=== PATIENT | male | born 1955 | race Caucasian/White ===

== ENCOUNTER 2021-02-01 10:00 | Observation (INO) | payer BC, MEDICARE, OTHER ==
[2021-02-01] MEDS ORDERED: Iopamidol-370 76% 500 ML 1 ML ONE (11:03)
[2021-02-01 11:06] LABS: #Lymphocytes 1.7 thou/uL (1.20-3.40); #Monocytes 0.6 thou/uL (0.11-0.59); #Neutrophils 4.1 thou/uL (1.40-6.50); %Basophils 0.6 % (0.0-1.0); %Eosinophils 0.3 % (0.0-10.0); %Lymphocytes 26.2 % (21.0-51.0); %Neutrophils 63.8 % (42.0-75.0); Hemoglobin 14.5 g/dL (14.0-18.0); Mean Corpuscular HGB CONC 34.1 g/dL (32.0-36.0); Mean Corpuscular Hemoglobin 30.4 pg (27.0-31.0); Mean Corpuscular Volume 89.3 fL (78.0-98.0); Mean Platelet Volume 8.9 fL (7.4-10.4); Platelet Count 145 thou/uL (130-400); RBC Distribution Width 12.3 % (11.5-14.5); Red Blood Cell (RBC) Count 4.77 mill/uL (4.70-6.10); White Blood Cell (WBC) Count 6.5 thou/uL (4.8-10.8)
[2021-02-01] MEDS ORDERED: Aspirin Chewable 81 MG TAB ONE (11:10)
[2021-02-01 11:31] LABS: ALT (SGPT) 26 U/L (8-55); AST (SGOT) 23 U/L (5-34); Albumin 4.1 g/dL (3.4-4.8); Alkaline Phosphatase 134 U/L (40-110); Anion Gap 17 mmol/L (10-20); BUN (Urea Nitrogen) 15 mg/dL (8.4-25.7); Bilirubin, Total 1.5 mg/dL (0.2-1.2); Calc. Creatinine Clearance 0 mL/min (70-130); Calcium 9.6 mg/dL (7.8-10.44); Carbon Dioxide 24 mmol/L (23-31); Chloride 101 mmol/L (98-107); Globulin 2.8 g/dL (2.4-3.5); Glucose 129 mg/dL (80-115); Potassium 4.5 mmol/L (3.5-5.1); Protein, Total 6.9 g/dL (5.8-8.1); Sodium 137 mmol/L (136-145)
[2021-02-01] MEDS ORDERED: Nitroglycerin 0.4 MG TAB (25 Tab Bottle) SL PRN (14:32)
[2021-02-01] MEDS ORDERED: HumaLOG 300 UNITS/3 ML VIAL SC PRN (14:34)
[2021-02-01] MEDS ORDERED: Dextrose 5% in Water 1,000 ML IV PRN (14:34)
[2021-02-01] MEDS ORDERED: Dextrose 50% Abboject 50 ML SYRINGE SLOW IVP PRN (14:34)
[2021-02-01 15:00] LABS: Troponin I Less than 0.010 ng/mL (< 0.028)
[2021-02-01 16:11] VITALS: BMI 30.8
[2021-02-01 17:44] LABS: Troponin I Less than 0.010 ng/mL (< 0.028)
[2021-02-01] MEDS ORDERED: Mometasone 100 MCG/PUFF (1 INHALER) INH PRN (17:53)
[2021-02-01] MEDS: Alogliptin 6.25 MG TAB PO SCH (20:36)
[2021-02-01] MEDS: metFORMIN 500 MG TAB PO SCH (20:37)
[2021-02-01] MEDS ORDERED: Lantus 1000 UNITS/10 ML VIAL SC SCH (21:00)
[2021-02-02] MEDS ORDERED: Levothyroxine Sodium 125 MCG TAB PO SCH (06:00)
[2021-02-02] MEDS: Alogliptin 6.25 MG TAB PO SCH (08:30)
[2021-02-02] MEDS: metFORMIN 500 MG TAB PO SCH (08:30)
[2021-02-02] MEDS ORDERED: Famotidine 20 MG TAB PO SCH (09:00)
[2021-02-02] MEDS ORDERED: Aspirin 325 mg Enteric Coated Tablet PO SCH (09:00)
[2021-02-02] MEDS ORDERED: Aspirin 81 mg Enteric Coated Tablet PO SCH (09:00)
[2021-02-02] MEDS ORDERED: FLUoxetine HCl 20 MG CAP PO SCH (09:00)
[2021-02-02] MEDS ORDERED: Regadenoson 0.4 MG/5 ML SYRINGE ONE (10:42)
[2021-02-02 12:06] VITALS: BP 134/75; TEMP 98.7
[2021-02-02 13:40] LABS: SARS-CoV-2 PCR by NAA Not Detected (NotDetected)
== END 2021-02-02 14:20 | disposition home or self-care (01) ==
LOC: ERS 10:00 → ERHOLD 14:09 → 2SW 16:09
PROVIDERS: ADMIT Internal Medicine; ATTEND Internal Medicine
DX: R07.89 Other chest pain (principal); I25.10 Atherosclerotic heart disease of native coronary artery without angina pectoris; I25.2 Old myocardial infarction; E11.9 Type 2 diabetes mellitus without complications; J44.9 Chronic obstructive pulmonary disease, unspecified; E03.9 Hypothyroidism, unspecified; K21.9 Gastro-esophageal reflux disease without esophagitis; N52.9 Male erectile dysfunction, unspecified; I10 Essential (primary) hypertension; F17.220 Nicotine dependence, chewing tobacco, uncomplicated; K80.20 Calculus of gallbladder without cholecystitis without obstruction; R16.1 Splenomegaly, not elsewhere classified; E88.81 Metabolic syndrome and other insulin resistance; I70.0 Atherosclerosis of aorta; Z79.4 Long term (current) use of insulin; Z79.82 Long term (current) use of aspirin; Z79.899 Other long term (current) drug therapy; Z88.1 Allergy status to other antibiotic agents; Z88.8 Allergy status to other drugs, medicaments and biological substances; Z95.1 Presence of aortocoronary bypass graft; Z20.822 Contact with and (suspected) exposure to COVID-19
CPT/HCPCS: 71045; 71275; 74174; 78452; 82962 ×2; 83880; 84484 ×2; 93005; 93017; 94760 ×2; 99285; A9500; G0378 ×3; U0003; U0005; 36415; 36416; 80053; 84443; 85025; 87635; J1815; J2785; Q9967